=== PATIENT | male | born 1980 | race Caucasian/White ===

== ENCOUNTER → 2022-02-22 | Outpatient (CLI) | payer MEDICARE ==
[2022-02-22 14:28] LABS: Basophils # (A) 0.04 X 10*3/uL (0.00-0.10); Basophils % (A) 0.3 %; Eosinophils # (A) 1.03 X 10*3/uL (0.04-0.35); Eosinophils % (A) 8.8 %; HGB 13.1 g/dL (13.0-17.0); Immature Grans, Automated 0.6 %; Lymphocytes # (A) 3.03 X 10*3/uL (0.90-5.00); MCHC 32.8 g/dL (32.0-37.0); MCV 94.6 fL (80.0-97.0); Mean Platelet Volume 11.4 fL (9.5-12.2); NRBC Per 100 WBC 0 /100 WBCS (0.0-0.0); Neutrophils # (A) 6.79 X 10*3/uL (1.80-7.70); Neutrophils % (A) 58.3 %; Platelet Count 307 X 10*3/uL (140-440); RBC 4.23 X 10*6/uL (4.40-5.60); WBC 11.66 X 10*3/uL (4.50-10.00)
[2022-02-22 14:38] LABS: ALT 24 U/L (10-49); AST 21 U/L (14-35); African American GFR (CKD) 126.3 (60.0-200.0); Albumin 4.8 g/dL (3.8-4.9); Albumin/Globulin Ratio 2.09 (1.60-3.17); Alkaline Phosphatase 70 U/L (41-126); BUN/Creat Ratio 14.92 Ratio (12.00-20.00); Blood Urea Nitrogen 12.7 mg/dL (9.0-27.0); Calcium 9.6 mg/dL (8.7-10.3); Carbon Dioxide 26.5 mmol/L (20.0-27.5); Chloride 100 mmol/L (96-109); Estradiol 9.4 pg/mL; Globulin 2.3 g/dL (1.6-3.3); Glucose 80 mg/dL (70-110); Non-African American GFR(CKD) 108.9 (60.0-200.0); Potassium 4.4 mmol/L (3.5-5.5); Sodium 138 mmol/L (135-145); Total Bilirubin <0.15 mg/dL (0.30-1.20); Total Protein 7.1 g/dL (6.2-8.2)
[2022-02-22 17:49] LABS: HIV 2 AB Non-Reactive (Non-Reactive); HIV AB P24 Non-Reactive (Non-Reactive); HIV P24 AG Non-Reactive (Non-Reactive)
== END | disposition home or self-care (01) ==
LOC: LABWHC1 10:58
PROVIDERS: ATTEND Physician Assistant
DX: Z20.6 Contact with and (suspected) exposure to human immunodeficiency virus [HIV] (principal); F84.0 Autistic disorder; F31.9 Bipolar disorder, unspecified
CPT/HCPCS: 36415; 80053; 82670; 84403; 84439; 84443; 85025; 86780; 87390

== ENCOUNTER 2024-10-10 14:43 | Inpatient (IN) | payer MEDICAID, MEDICARE ==
[2024-10-10] MEDS ORDERED: LORazepam 2 MG/ML INJ IM PRN (16:56)
[2024-10-10] MEDS ORDERED: MAG HYDROX/AL HYDROX/SIMETH 30 ML CUP PO PRN (16:56)
[2024-10-10] MEDS ORDERED: MAGNESIUM HYDROXIDE 2,400 MG/30 ML CUP PO PRN (16:56)
[2024-10-10] MEDS ORDERED: ACETAMINOPHEN TAB 325 MG TAB PO PRN (16:56)
[2024-10-10] MEDS: NON FORMULARY DRUG (Progesterone, Micronized [Progesterone] 200 MG Capsule) PO SCH (23:26)
[2024-10-10] MEDS: SPIRONOLACTONE 25 MG TAB PO SCH (23:26)
[2024-10-11] MEDS: NICOTINE 21MG/24HR PATCH TRANSDERM SCH (08:38)
[2024-10-11] MEDS: SPIRONOLACTONE 100 MG TAB PO SCH (08:39)
[2024-10-11] MEDS: NON FORMULARY DRUG (Emtricitabine/Tenofov Alafenam [Descovy 200-25 Mg Tablet] 1 EACH Table PO SCH (08:40)
--- NOTE | 2024-10-11 11:15 | P.PN ---
Progress Note - Text Progress Note Date: 10/11/24 Patient is an extremely poor historian in his present state of psychosis, and is not appropriate for medical evaluation at this time.
[2024-10-11] MEDS ORDERED: flUPHENAZine 2.5 MG/ML (MDV) 10 ML VIAL IM PRN (14:24)
--- NOTE | 2024-10-11 14:24 | P.HP ---
Psychiatric H&P - . H&P Date: 10/11/24 History & Physical: Allergies Allergy/AdvReac Type Severity Reaction Status Date / Time aripiprazole from Abilify Allergy Unknown Verified 10/10/24 19:02 haloperidol from Haldol Allergy Unknown Verified 10/10/24 19:02 risperidone from Risperdal Allergy Unknown Verified 10/10/24 19:02 Vital Signs Temp 96.4 F L 10/11/24 08:42 Pulse 86 10/11/24 08:42 Resp 12 10/10/24 22:25 BP 129/87 10/11/24 08:42 Pulse Ox 98 10/11/24 08:42 FiO2 Intake & Output 10/10/24 10/11/24 10/11/24 18:59 06:59 18:59 Weight 90.129 kg Laboratory Last Values TSH 1.540 mIU/L (0.465-4.680) 10/11/24 10:47 10/11/24 14:18 IDENTIFYING DATA: Patient is a 44-year-old male to female transgender, claims that she is single she has no kids she lives alone in an apartment, [facility] [employer] HPI: Patient presented to the hospital yesterday was apparently bizarre disheveled in appearance. Patient was evaluated by EPS nurse "Patient presently at [facility]. Patient brought in by PD related to acute psychosis, responding to internal stimuli, and delusions. Patient has active petition and clinical certificate. Patient was found on someone's porch, repor evangelista to have acute psychosis. Presented with confusion, disorganized speech. Non- sensical and not oriented to date or time. Patient reports being abducted by [place]. Reports that he is going to be burned in a recycling bin. Patient unable to answer several questions per mobile crisis r/t disorganized thought, as well as slurred and mumbling speech. Patient denies suicidal or homicidal ideations. Denies alcohol and substance use. Patient UDS+ THC and amphetamines. ETOH 0." Patient was seen today for psychiatric evaluation. Patient was fairly illogical during the interview, responding to internal stimuli, talking to himself and whispering. Patient had poor eye contact looking around the room. Spoke about "temples" and also calyxes. Claims that the police brought her in for evaluation. States that she does not need any medications claims that she cannot have any medications at this time. Is endorsing some paranoia towards others, claims that her sleep and appetite are fair. Poor insight judgment, disheveled appearance, bizarre at times, poor reality testing. Patient denies any suicidal or homicidal ideations intent or plan. At this time patient denies any auditory or visual hallucinations. Patient denies any flight of ideas racing thoughts and increased in goal directed behavior. Patient admits to using marijuana regularly and also cigarettes. PAST PSYCHIATRIC HISTORY: Patient has a history of "ADD" denies any other psychiatric diagnoses. Patient denies being on any psychiatric medications. Patient denies any previous psychiatric hospitalizations. Claims that she used to follow-up at the [facility] for treatment however was discharged from them. Patient denies any history of suicide attempts in the past. PMH: as per ER note ALLERGIES: as per EMR CHEMICAL DEPENDENCY HISTORY: as per HPI FAMILY PSYCHIATRIC/SUBSTANCE USE HISTORY: Claims that her sister has autism SOCIAL HISTORY: Patient was born and raised in [place], claims that she completed high school, was in the [employer] from [id number]. Denies any legal history, no kids, single lives alone in an apartment. MENTAL STATUS EXAM: General Appearance: Patient appears to be mildly overweight, long hair, dyed blonde, disheveled appearance, unshaven, stated age is alert, uncooperative and responding to internal stimuli. Patient appears to have poor hygiene and grooming. Behavior: Patient is seated without any agitated behavior. Poor eye contact, responding to internal stimuli Speech: Patient's speech is fluent and nonpressured. Whispering at times, illogical Mood/Affect: Patient reports their mood is "fine", affect is congruent and constricted. Suicidality/Homicidality: Patient denies having any homicidal ideation intent or plan. Denies any suicidal ideations intent or plan Perceptions: Patient denies any visual hallucinations and denies any auditory hallucinations Though content/process: Rambling at times, illogical, minimizing Memory and concentration: AOX3, grossly intact for the purposes of this session. Cannot spell "WORLD" backwards Judgment and insight: Poor STRENGTHS/WEAKNESSES: strength is that patient is resilient. Weakness is that patient has poor judgment and is impulsive INTELLECT: Average IMPRESSIONS: Psychosis unspecified Cannabis use disorder Nicotine dependence PLAN: -Patient is admitted under involuntary status to MHU for stabilization of psychiatric symptoms and safety. Patient has not signed adult voluntary form and has not signed medication consent and is placed in patient's chart. A second certification was completed and along with petition will be filed for court. -Medications : Zyprexa 5 mg nightly for mood stabilization/sleep/psychosis -Ativan and Haldol PRN for agitation/aggression -Patient was counselled on substance abuse and desired to cut back on use. Will offer patient subtance use rehab -Patient was informed of the risks, benefits and side effects of the medications . Patient did not signed med consent form and was placed in chart. Patient was offered medication information and declined it -Internal Medicine consult to perform medical evaluation and physical. -NRT -nicotine patch -SW on board for discharge planning. Encourage patient to participate in groups to work on coping skills. Will await deferral and court date. 10/11/24 14:20
[2024-10-11] MEDS: OLANZapine 5 MG TAB PO SCH (21:02)
--- NOTE | 2024-10-11 23:55 | P.PN ---
Progress Note - Text Progress Note Date: 10/11/24 Attempted to see the patient in the MHU. The patient was very sleepy and had a difficult time answering most questions. Will attempt to see the patient again tomorrow.
[2024-10-12 07:52] LABS: Chol/HDL Ratio 6.96 Ratio
[2024-10-12] MEDS: SPIRONOLACTONE 100 MG TAB PO SCH (08:39)
[2024-10-12] MEDS: IBUPROFEN 600 MG TAB PO PRN (08:39)
--- NOTE | 2024-10-12 10:41 | P.PN ---
Progress Note - Text Progress Note Date: 10/12/24 Interval history: Patient was seen laying in bed today and was directable and agreeable to speak with typewriter assembler. Patient was fairly tired, not cooperative with interview today. Was responding to internal stimuli however less today. Answered only some questions, turned away from typewriter assembler. States that he is not feeling well today and wanted to be left alone. Denies any depression or anxiety, claims that he slept fairly last night. At this time patient denies any suicidal or homicidal ideations intent or plan. Denies any Auditory or visual hallucinations. Patient denies any side effects from the medications and has been compliant with meds. Mental status exam: General Appearance: Patient appears to be older than stated age is alert, unshaven, dyed hair, difficult to redirect and uncooperative. Behavior: No agitated behavior. Fairly uncooperative Speech: Patient's speech is fluent and nonpressured. [place], monotone Mood/Affect: Mood is "fine", affect is incongruent and constricted. Suicidality/Homicidality: Patient denies having any suicidal or homicidal ideation intent or plan. Perceptions: Patient denies any auditory or visual hallucinations. Though content/process: Poverty of content, poverty of speech. Memory and concentration: AOX3, grossly intact for the purposes of this session Judgment and insight: Poor Assessment/Plan: Continue with current diagnosis. Patient continues to meet criteria for inpatient psychiatric admission for symptom stabilization and s afety. Patient will be maintained on current psychotropic medication regimen. Monitor for medication compliance and for any psychotropic medication side effects. Will continue to monitor ongoing response to treatment. Encouraged participation in milieu.
[2024-10-12] MEDS: LORazepam 1 MG TAB PO PRN (15:37)
--- NOTE | 2024-10-13 11:36 | P.PN ---
Progress Note - Text Progress Note Date: 10/13/24 Interval history: The patient was seen today for psychiatric follow-up. He was laying in bed ap pears to be fairly sedated. He continues to be mumbling, claims that he is feeling very tired" all I do is sleep". He has been taking the Zyprexa at nighttime and has been blaming on this. He claims to have allergies to several different medications. Continues to have disorganized speech at times, whispering. He also stated to senior mortgage underwriter that he is not "" and describes himself as "". He claims his mood is "fine" denies any anxiety at this time. Claims that he slept all night sleeping mainly during the day not going to groups, disheveled appearance. Denies any auditory or visual hallucinations denies any suicidal or homicidal ideations intent or plan MENTAL STATUS EXAM: General Appearance: Patient appears to be mildly overweight, long hair, dyed blonde, unshaven, stated age is sedated, minimally and responding to internal stimuli less. Patient appears to have poor hygiene and grooming. Disheveled appearance Behavior: Patient is seated without any agitated behavior. Poor eye contact, fairly evasive, appears to be fairly sedated Speech: Patient's speech is fluent and nonpressured. Whispering at times, more logical today Mood/Affect: Patient reports their mood is "ok just tired", affect is congruent and constricted. Suicidality/Homicidality: Patient denies having any homicidal ideation intent or plan. Denies any suicidal ideations intent or plan Perceptions: Patient denies any visual hallucinations and denies any auditory hallucinations Though content/process: Rambling at times, illogical, mumbling Memory and concentration: AOX3, grossly intact for the purposes of this session. Judgment and insight: Poor, improving mildly IMPRESSIONS: Psychosis unspecified Cannabis use disorder Nicotine dependence PLAN: -Patient is admitted under involuntary status to MHU for stabilization of psychiatric symptoms and safety. Patient has not signed adult voluntary form and has not signed medication consent and is placed in patient's chart. -Medications : d/c Zyprexa due to oversedation, replace with Prolixin 1 mg daily +2 mg nightly for mood stabilization/sleep/psychosis -Will offer patient subtance use rehab once patient is more clear -NRT -nicotine patch -SW on board for discharge planning. Encourage patient to participate in groups to work on coping skills. Will await deferral today and court scheduled for 10/15.
[2024-10-13] MEDS: MELATONIN 3 MG TABLET PO SCH (20:41)
--- NOTE | 2024-10-14 04:25 | P.MDCNMH ---
History of Present Illness H&P Date: 10/13/24 Patient is a 44-year-old transgender female with preffered pronouns she/her with history of psychosis, cannabis use, nicotine dependence, ADD who presented for evaluation of mental health needs. Medicine was consulted for medical evaluation. Patient states they have no medical history or problems. Patient takes descovy, estradiol, finasteride, progesterone, spironolactone, tadalafil at home. She does have some dizziness that he states has been ongoing for some time, better while lying down. Patient denies fever, chest pain, shortness of breath, abdominal pain, dysuria. Patient is afebrile, blood pressure 125/89, pulse 102, O2 saturation 97% on room air. Lipid panel triglycerides 167, cholesterol 227, LDL 161 are elevated. HbA1c and TSH are WNL. No imaging to review. Social history: Patient does endorse using tobacco and cannabis. Patient denies history of alcohol. Review of systems: Reviewed, pertinent positive negatives as per HPI Gen: In NAD, non-toxic HEENT: normocephalic, atraumatic, hearing acuity is intact, mucous membranes moist CVS: perfusing all extremities well, no pitting edema Respiratory: symmetric chest expansion, no accessory muscle use GI: soft, NTTP, ND, healing bruise present on left umbilicus : no suprapubic tenderness, no CVA tenderness MSK/Derm: no rashes, cyanosis Neuro: CN II-XII intact, no motor weakness Assessment/plan: #Mixed dyslipidemia - no statin therapy at this time - continue to monitor as outpatient Resume home hormonal therapy and prep medication #Psychosis # Substance use disorders -Management per primary psychiatry service Thank you for this consult, please reach out if any further questions/concerns. Past Medical History Past Medical History: No Reported History Additional Past Medical History / Comment(s): Transgender male to female. History of Any Multi-Drug Resistant Organisms: None Reported Past Surgical History: No Surgical Hx Reported Past Anesthesia/Blood Transfusion Reactions: No Reported Reaction Smoking Status: Former smoker Medications and Allergies Home Medications Medication Instructions Recorded Confirmed Type Dextroamphetamine/Amphetamine 20 mg PO BID 10/10/24 10/10/24 History [Adderall] Emtricitabine/Tenofov Alafenam 1 tab PO DAILY 10/10/24 10/10/24 History [Descovy 200-25 mg Tablet] Finasteride [Propecia] 1 mg PO DAILY 10/10/24 10/10/24 History Progesterone, Micronized 200 mg PO HS 10/10/24 10/10/24 History [Progesterone] Spironolactone [Aldactone] 100 mg PO BID 10/10/24 10/10/24 History estradioL 4 mg PO BID 10/10/24 10/10/24 History tadalafiL 5 mg PO DAILY PRN 10/10/24 10/10/24 History valACYclovir HCL [Valtrex] 1,000 mg PO BID 10/10/24 10/10/24 History Allergies Allergy/AdvReac Type Severity Reaction Status Date / Time aripiprazole [From Abilify] Allergy Unknown Verified 10/10/24 19:02 divalproex sodium Allergy Unknown Verified 10/13/24 15:59 [From Depakote] haloperidol [From Haldol] Allergy Unknown Verified 10/10/24 19:02 risperidone [From Risperdal] Allergy Unknown Verified 10/10/24 19:02 Physical Exam Vitals: Vital Signs Temp Pulse Resp BP BP Pulse Ox 10/13/24 08:49 96.9 F L 102 H 18 125/89 97 10/12/24 21:22 97.5 F L 102 H 12 135/86 97 Cranial Nerve Examination - Cranial Nerves Cranial Nerve II- Optic: Intact Cranial Nerve III- Oculomotor: Intact Cranial Nerve IV- Trochlear: Intact Cranial Nerve V- Trigeminal: Intact Cranial Nerve - Abducens: Intact Cranial Nerve VII- Facial: Intact Cranial Nerve VIII- Auditory: Intact Cranial Nerve IX- Glossopharyngeal: Intact Cranial Nerve X- Vagus: Intact Cranial Nerve XI- Accessory: Intact Cranial Nerve XII- Hypoglossal: Intact
--- NOTE | 2024-10-14 09:57 | P.PN ---
Progress Note - Text Progress Note Date: 10/14/24 Interval history: The patient was seen today for psychiatric follow-up. Patient was laying in b ed, continues to be fairly sedated. Was turned away from residential mortgage underwriter, minimally cooperative mumbled a few answers, denied any issues overnight. Denies any depression at this time. Denied any other concerns at this time. Continues to be disheveled in appearance mainly keeping himself. He claims his mood is "fine" denies any anxiety at this time. Claims that he slept all night sleeping mainly. Denies any auditory or visual hallucinations denies any suicidal or homicidal ideations intent or plan. Fairly uncooperative today MENTAL STATUS EXAM: General Appearance: Patient appears to be mildly overweight, long hair, dyed blonde, unshaven, stated age is sedated, minimally cooperative. Patient appears to have poor hygiene and grooming. Disheveled appearance Behavior: Patient is laying in bed without any agitated behavior. Poor eye contact, fairly evasive, appears to be fairly sedated Speech: Patient's speech is mumbling Mood/Affect: Patient reports their mood is "fine", affect is congruent and constricted. Suicidality/Homicidality: Patient denies having any homicidal ideation intent or plan. Denies any suicidal ideations intent or plan Perceptions: Patient denies any visual hallucinations and denies any auditory hallucinations Though content/process: mumbling, poverty of content Memory and concentration: AOX3, grossly intact for the purposes of this session. Judgment and insight: Poor IMPRESSIONS: Psychosis unspecified Cannabis use disorder Nicotine dependence PLAN: -Patient is admitted under involuntary status to MHU for stabilization of psychiatric symptoms and safety. Patient has not signed adult voluntary form and has not signed medication consent and is placed in patient's chart. -Medications : Decrease Prolixin 2 mg nightly for mood stabilization/sleep/psy chosis. Decreased as needed Ativan to avoid oversedation. -Will offer patient subtance use rehab once patient is more clear -NRT -nicotine patch -SW on board for discharge planning. Encourage patient to participate in groups to work on coping skills. Will await deferral and court scheduled for 10/15.
[2024-10-14] MEDS: LORazepam 0.5 MG TAB PO PRN (15:16)
[2024-10-14] MEDS ORDERED: ATORVASTATIN 10 MG TAB PO SCH (21:00)
--- NOTE | 2024-10-15 11:19 | P.PN ---
Progress Note - Text Progress Note Date: 10/15/24 Interval history: The patient was seen today for psychiatric follow-up. Patient was laying on his bed turn to the side. Claims that he is still feeling fairly tired very little energy. Claims that he slept throughout the night. He appears to be more appropriate and this thought content less bizarre. Less responding to internal stimuli today. Claims that he has not spoken with the family law attorney at, was referring to a doing a jury trial. He continues to be fairly concrete fairly superficial. Denies any depression at this time. Continues to be disheveled in appearance mainly keeping himself, improving mildly and according to staff he has been up mostly in the afternoon and evenings. Denies any auditory or visual hallucinations denies any suicidal or homicidal ideations intent or plan. MENTAL STATUS EXAM: General Appearance: Patient appears to be mildly overweight, long hair, dyed blonde, unshaven, stated age is sedated, minimally cooperative. Patient appears to have improving hygiene and grooming. Disheveled appearance Behavior: Patient is laying in bed without any agitated behavior. Poor eye contact, fairly evasive, appears to be fairly sedated Speech: Patient's speech is mumbling, improving mildly Mood/Affect: Patient reports their mood is "tired", affect is congruent and constricted. Suicidality/Homicidality: Patient denies having any homicidal ideation intent or plan. Denies any suicidal ideations intent or plan Perceptions: Patient denies any visual hallucinations and denies any auditory hallucinations Though content/process: mumbling, poverty of content Memory and concentration: AOX3, grossly intact for the purposes of this session. Judgment and insight: Chronically poor improving mildly IMPRESSIONS: Psychosis unspecified Cannabis use disorder Nicotine dependence PLAN: -Patient is admitted under involuntary status to MHU for stabilization of ps ychiatric symptoms and safety. Patient has not signed adult voluntary form and has not signed medication consent and is placed in patient's chart. -Medications : Prolixin 2 mg nightly for mood stabilization/sleep/psychosis. Discontinue melatonin. Discontinue Ativan replace with Klonopin 0.25 mg twice daily as needed for anxiety. -Will offer patient subtance use rehab once patient is more clear -NRT -nicotine patch -SW on board for discharge planning. Encourage patient to participate in groups to work on coping skills. Will await deferral and court scheduled for 10/15.
[2024-10-15] MEDS: clonazePAM 0.5 MG TAB PO PRN (13:21)
[2024-10-16] MEDS ORDERED: flUPHENAZine 2.5 MG/ML (MDV) 10 ML VIAL IM PRN (11:25)
--- NOTE | 2024-10-16 11:25 | P.PN ---
Progress Note - Text Progress Note Date: 10/16/24 Interval history: The patient was seen today for psychiatric follow-up. Patient was laying on his bed, facing the ceiling. Eye contact improving mildly. Mildly less sedated today. Claims that he is still feeling fairly tired during the day, appears to be improvement and thought process more organized. Continues to be fairly concrete. Evasive about his symptoms. Not responding to internal stimuli today. Patient states that he is okay with taking the medications however did not know if he signed a deferral or not or if he still wants to go through with the jury trial. He continues to be fairly concrete fairly superficial. Denies any depression at this time. Continues to be disheveled in appearance mainly keeping himself, improving mildly and according to staff he has been up mostly in the afternoon and evenings. Denies any auditory or visual hallucinations denies any suicidal or homicidal ideations intent or plan. MENTAL STATUS EXAM: General Appearance: Patient appears to be mildly overweight, long hair, dyed blonde, unshaven, stated age is sedated, minimally cooperative. Patient appears to have improving hygiene and grooming. Disheveled appearance, improving mildly Behavior: Patient is laying in bed without any agitated behavior. Improving eye contact, fairly evasive, appears to be fairly sedated Speech: Patient's speech is mumbling, improving mildly Mood/Affect: Patient reports their mood is "tired", affect is congruent and constricted. Suicidality/Homicidality: Patient denies having any homicidal ideation intent or plan. Denies any suicidal ideations intent or plan Perceptions: Patient denies any visual hallucinations and denies any auditory hallucinations Though content/process: mumbling, poverty of content, more organized speech Memory and concentration: AOX3, grossly intact for the purposes of this session. Judgment and insight: Chronically poor improving mildly IMPRESSIONS: Psychosis unspecified Cannabis use disorder Nicotine dependence PLAN: -Patient is admitted under involuntary status to MHU for stabilization of psychiatric symptoms and safety. Patient has not signed adult voluntary form and has not signed medication consent and is placed in patient's chart. -Medications : Decrease Prolixin 1 mg nightly for mood stabilizat ion/sleep/psychosis. melatonin 3 mg qhs for sleep. Klonopin 0.25 mg twice daily as needed for anxiety. -Will offer patient subtance use rehab once patient is more clear -NRT -nicotine patch -SW on board for discharge planning. Encourage patient to participate in groups to work on coping skills. patient is still requesting a jury trial.
[2024-10-16] MEDS: MELATONIN 3 MG TABLET PO SCH (19:51)
--- NOTE | 2024-10-17 11:52 | P.PN ---
Progress Note - Text Progress Note Date: 10/17/24 Interval history: The patient was seen today for psychiatric follow-up. Patient was coming out of the bathroom. Appears to be less tired today. According to nursing staff and advertising copywriter's observation of patient he has been up in the hallways at times talking to himself responding to internal stimuli. Patient appears to have improvement in his cooperation, improvement in affect and more directable. He claims that "he will never believe me but I talked to Jon Isaac last night". He spoke more about seeing him in the hallway and also in the dining martin. He claims that he is willing to continue taking medications. Believes that the Prolixin is too strong for him and making him tired. He continues to be fairly concrete fairly superficial. Denies any auditory or visual hallucinations denies any suicidal or homicidal ideations intent or plan. MENTAL STATUS EXAM: General Appearance: Patient appears to be mildly overweight, long hair, dyed blonde, unshaven, stated age is sedated, more cooperative. Patient appears to have improving hygiene and grooming. Less disheveled appearance, improving mildly Behavior: Patient is standing without any agitated behavior. Responding to internal stimuli. Improving eye contact Speech: Patient's speech is mumbling, improving mildly Mood/Affect: Patient reports their mood is "ok", affect is congruent and constricted. Suicidality/Homicidality: Patient denies having any homicidal ideation intent or plan. Denies any suicidal ideations intent or plan Perceptions: Patient denies any visual hallucinations and denies any auditory hallucinations Though content/process: mumbling, poverty of content, more organized speech, bizarre and delusional Memory and concentration: AOX3, grossly intact for the purposes of this session. Judgment and insight: Chronically poor improving mildly IMPRESSIONS: Psychosis unspecified Cannabis use disorder Nicotine dependence PLAN: -Patient is admitted under involuntary status to [facility] for stabilization of psychiatric symptoms and safety. Patient has not signed adult voluntary form and has not signed medication consent and is placed in patient's chart. -Medications : Discontinue Prolixin and will try Zyprexa 2.5 mg nightly for mood stabilization/sleep/psychosis. Klonopin 0.25 mg twice daily as needed for anxiety. -Will offer patient subtance use rehab once patient is more clear -NRT -nicotine patch -SW on board for discharge planning. Encourage patient to participate in groups to work on coping skills. patient is still requesting a jury trial.
[2024-10-17] MEDS: FLUoxetine HCL 10 MG CAP PO SCH (11:56)
[2024-10-17] MEDS: OLANZapine 2.5 MG TAB PO SCH (21:09)
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
--- NOTE | 2024-10-19 07:15 | P.PN ---
Subjective Progress Note Date: 10/19/24 Principal diagnosis: psychosis NOS and cannabis abuse Interval history: The patient was seen today for psychiatric follow-up. Patient was pacing in the martin but was willing to come and talk to me.the staff told me that he had done well through most the night and just about 5 m inutes ago began to crank up and get agitated. Right away he was on the oversensitive, "where did you get her degree how do I know you are even a fucking Dr. Dumont did not answer my question why am I even here I am a [place] and citizen [place] and you have no right." When he wakes up he worse. MENTAL STATUS EXAM: the patient has no insight he is quite psychotic. he is loud and rambling but did not threaten me General Appearance: Patient appears to be mildly overweight, long hair, dyed blonde, unshaven, stated age is sedated, more cooperative. Patient appears to have improving hygiene and grooming. Less disheveled appearance, improving mildly Behavior: Patient is standing without any agitated behavior. Responding to internal stimuli. Improving eye contact Speech: Patient's speech is mumbling, a couple of times I asked him if he would speak louder and he did Mood/Affect: Patient reports their mood is "ok", affect is congruent and constricted. Suicidality/Homicidality: Patient denies having any homicidal ideation intent or plan. Denies any suicidal ideations intent or plan Perceptions: Patient denies any visual hallucinations and denies any auditory hallucinations Though content/process: mumbling, poverty of content, more organized speech, bizarre and delusional Memory and concentration: AOX3, grossly intact for the purposes of this session. Judgment and insight: Chronically poor improving mildly IMPRESSIONS: Psychosis unspecified thank you so muchnot doing any better Cannabis use disorder Nicotine dependence PLAN: he really needs to increase his antipsychotic but is not willing to do so at this time. -Patient is admitted under involuntary status to [facility] for stabilization of psychiatric symptoms and safety. Patient has not signed adult voluntary form and has not signed medication consent and is placed in patient's chart. -Medications : Discontinue Prolixin and will try Zyprexa 2.5 mg nightly for mood stabilization/sleep/psychosis. Klonopin 0.25 mg twice daily as needed for anxiety. -Will offer patient subtance use rehab once patient is more clear -NRT -nicotine patch -SW on board for discharge planning. Encourage patient to participate in groups to work on coping skills. patient is still requesting a jury trial. involved with my face scaring them I identifying medications aren't working taking any insulin yesterday for good night sleep and he wonders Objective - Vital Signs Vital signs: Vital Signs Temp 97.6 F 10/18/24 08:32 Pulse 89 10/18/24 08:32 Resp 20 10/18/24 08:32 BP 128/93 10/18/24 08:32 Pulse Ox 95 10/17/24 21:08 FiO2
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
[2024-10-20] MEDS: OLANZapine 5 MG TAB PO SCH (21:12)
--- NOTE | 2024-10-21 11:45 | P.PN ---
Progress Note - Text Progress Note Date: 10/21/24 Interval history: The patient was seen today for psychiatric follow-up. Patient was laying in his bed, states that he has been feeling fairly tired. He claims that the medication has been giving him "nightmares". He continues to be suspicious, believes that there could be bedbugs in his bed, claims that he felt biting at him during the night. He is still responding to internal stimuli, talking to himself and bizarre at times and delusional. He continues to have fairly poor insight poor judgment. Continues to have poor hygiene and poor grooming. Claims that he has been eating fairly. Continues to be fairly focused on discharge. Believes that the medication at nighttime is too strong for him. He continues to be fairly concrete fairly superficial. endosring paranoia towards others on the unit. Denies any auditory or visual hallucinations denies any suicidal or homicidal ideations intent or plan. MENTAL STATUS EXAM: General Appearance: Patient appears to be mildly overweight, long hair, dyed blonde, unshaven, stated age is sedated, more cooperative. Patient appears to freitas ve improving hygiene and grooming. Less disheveled appearance, improving mildly Behavior: Patient is standing without any agitated behavior. Responding to internal stimuli. Improving eye contact Speech: Patient's speech is mumbling, improving mildly, whuispering at times Mood/Affect: Patient reports their mood is "not good", affect is congruent and constricted. Suicidality/Homicidality: Patient denies having any homicidal ideation intent or plan. Denies any suicidal ideations intent or plan Perceptions: Patient denies any visual hallucinations and denies any auditory hallucinations Though content/process: mumbling, poverty of content, more organized speech, bizarre and delusional, endorsing paranoia Memory and concentration: AOX3, grossly intact for the purposes of this session. Judgment and insight: Chronically poor IMPRESSIONS: Psychosis unspecified Cannabis use disorder Nicotine dependence PLAN: -Patient is admitted under involuntary status to [facility] for stabilization of psy chiatric symptoms and safety. Patient has not signed adult voluntary form and has not signed medication consent and is placed in patient's chart. -Medications : d/c Zyprexa due to oversedation and suppose it intolerance/side effects, will start Latuda 20 mg at 1800hr today for mood stabilization/sleep/psychosis. Klonopin 0.25 mg twice daily as needed for anxiety. Increase Prozac to 20 mg daily for mood/anxiety. -Patient is refusing rehab at this time. -NRT -nicotine patch -SW on board for discharge planning. Encourage patient to participate in groups to work on coping skills. patient is still requesting to speak with his deputy attorney general again about signing a deferral.
[2024-10-21] MEDS: FLUoxetine HCL 10 MG CAP PO STA (11:47)
[2024-10-21] MEDS: LURASIDONE 20 MG TAB PO SCH (18:03)
[2024-10-22] MEDS: FLUoxetine HCL 20 MG CAP PO SCH (08:47)
--- NOTE | 2024-10-22 09:28 | P.PN ---
Progress Note - Text Progress Note Date: 10/22/24 Interval history: The patient was seen today for psychiatric follow-up. Patient was seen wander ing the hallways today. He claims that he is doing a bit better today, claims that his mood and anxiety been improving. Not reporting any significant side effects from medications. Claims that he was able to sleep okay last night however did not specify how long. Has been eating well. He did go to groups earlier today however was not able to reflect on what he learned. He appears to be less delusional today less preoccupied with paranoia. He continues to have fairly poor insight poor judgment. Insight and judgment improving mildly. Claims that he has been eating fairly. Claims that he is willing to meet with his trial attorney to sign a deferral instead of doing the court jury trial. He continues to be fairly concrete fairly superficial.Denies any auditory or visual hallucinations denies any suicidal or homicidal ideations intent or plan. MENTAL STATUS EXAM: General Appearance: Patient appears to be mildly overweight, long hair, dyed blonde, unshaven, stated age is sedated, more cooperative. Patient appears to have improving hygiene and grooming. Behavior: Patient is standing without any agitated behavior. less Responding to internal stimuli. Improving eye contact Speech: Patient's speech is mumbling, improving mildly, fairly quiet Mood/Affect: Patient reports their mood is "better", affect is congruent and constricted. Improving mildly Suicidality/Homicidality: Patient denies having any homicidal ideation intent or plan. Denies any suicidal ideations intent or plan Perceptions: Patient denies any visual hallucinations and denies any auditory hallucinations Though content/process:poverty of content, more organized speech, less bizarre and delusional today. Not endorsing paranoia Memory and concentration: AOX3, grossly intact for the purposes of this session. Judgment and insight: Chronically poor, improving mildly IMPRESSIONS: Psychosis unspecified Cannabis use disorder Nicotine dependence PLAN: -Patient is admitted under involuntary status to [facility]HU for stabilization of psychiatric symptoms and safety. Patient has not signed adult voluntary form and has not signed medication consent and is placed in patient's chart. -Medications : Continue Latuda 20 mg at 1800hr for mood stabilization/sleep/psychosis, will increase tomorrow to 40 mg. Klonopin 0.25 mg twice daily as needed for anxiety. Prozac 20 mg daily for mood/anxiety. -Patient is refusing rehab at this time. -NRT -nicotine patch -SW on board for discharge planning. Encourage patient to participate in groups to work on coping skills. patient is still requesting to speak with his trial attorney again about signing a deferral and is no longer want a jury trial. Probable discharge by the end of the week if patient is improving.
[2024-10-22 09:49] VITALS: RESP 16
[2024-10-22] MEDS: CEPHALEXIN 500 MG CAP PO SCH (09:54)
[2024-10-22 10:40] VITALS: BMI 34.1
--- NOTE | 2024-10-23 12:03 | P.PN ---
Progress Note - Text Progress Note Date: 10/23/24 Interval history: The patient was seen today for psychiatric follow-up. Patient was seen taking part in group today playing activities with other patients. He appears to be more pleasant with sports book writer today, states that he is doing well. Claims that his mood and anxiety have been improving. Claims that he is able to sleep fairly last night. He denied any issues with the medications at this time. Continues to be fairly concrete at times however this is improving, logical, not endorsing paranoia or delusions. claims that he has been eating fairly. He signed a waive and stip with his deputy prosecuting attorney yesterday agreeing to the order. He continues to be fairly concrete fairly superficial.Denies any auditory or visual hallucinations denies any suicidal or homicidal ideations intent or plan. MENTAL STATUS EXAM: General Appearance: Patient appears to be mildly overweight, long hair, dyed bl onde, unshaven, stated age is sedated, more cooperative. Patient appears to have improving hygiene and grooming. Behavior: Patient is standing without any agitated behavior.not Responding to internal stimuli. Improving eye contact Speech: Patient's speech is mumbling, improving mildly, fairly quiet Mood/Affect: Patient reports their mood is "good", affect is congruent and constricted. Improving mildly Suicidality/Homicidality: Patient denies having any homicidal ideation intent or plan. Denies any suicidal ideations intent or plan Perceptions: Patient denies any visual hallucinations and denies any auditory hallucinations Though content/process:poverty of content, more organized speech, less bizarre and delusional today. Not endorsing paranoia Memory and concentration: AOX3, grossly intact for the purposes of this session. Judgment and insight: Chronically poor, improving IMPRESSIONS: Psychosis unspecified Cannabis use disorder Nicotine dependence PLAN: -Patient is admitted under involuntary status to M[facility] for stabilization of psychiatric symptoms and safety. Patient has not signed adult voluntary form and has not signed medication consent and is placed in patient's chart. -Medications : Continue Latuda 20 mg at 1800hr for mood stabilization/sleep/psychosis. Klonopin 0.25 mg twice daily as needed for anxiety. Prozac 20 mg daily for mood/anxiety. -NRT -nicotine patch -SW on board for discharge planning. Encourage patient to participate in groups to work on coping skills. patient signed a waive and stip, consenting to the mental health order on 10/22, if patient continues to improve likely discharge tomorrow back home.
[2024-10-23 23:03] VITALS: TEMP 97.1
[2024-10-24 09:10] VITALS: BP 106/73; PULSE 112
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
== END 2024-10-24 14:11 | disposition home or self-care (01) | DRG 885 ==
LOC: EEVIPCON 16:00 → 3MHU 16:00
PROVIDERS: ADMIT Psychiatry & Neurology Psychiatry; ATTEND Psychiatry & Neurology Psychiatry
DX: F23 Brief psychotic disorder (principal); E78.2 Mixed hyperlipidemia; F12.10 Cannabis abuse, uncomplicated; Z87.891 Personal history of nicotine dependence; F41.9 Anxiety disorder, unspecified; F64.0 Transsexualism; Z87.820 Personal history of traumatic brain injury; Z79.899 Other long term (current) drug therapy; Z88.8 Allergy status to other drugs, medicaments and biological substances
CPT/HCPCS: 80061; 83036; 84443